=== PATIENT | male | born 1960 | race Caucasian/White ===

== ENCOUNTER 2020-07-23 17:07 | Outpatient (REF) | payer MEDICARE, SELFPAY | END 2020-07-23 17:08 | disposition home or self-care (01) | LOC: HO.LAB 17:07 | PROVIDERS: PCP Internal Medicine Geriatric Medicine; Visit Provider Internal Medicine | DX: Z20.828 Contact with and (suspected) exposure to other viral communicable diseases (principal) | CPT/HCPCS: 87635 ==

== ENCOUNTER 2020-08-26 12:03 | Outpatient (REF) | payer MEDICARE, SELFPAY | END 2020-08-26 12:04 | disposition home or self-care (01) | LOC: HO.EMPCOV 12:03 | PROVIDERS: Visit Provider Internal Medicine | DX: Z20.828 Contact with and (suspected) exposure to other viral communicable diseases (principal) | CPT/HCPCS: C9803; U0003 ==

== ENCOUNTER → 2021-11-26 10:55 | Outpatient (BNVA) | payer MEDICARE, SELFPAY | PROVIDERS: PCP Internal Medicine Geriatric Medicine; Referring Provider Internal Medicine Geriatric Medicine; Visit Provider Physician Assistant | DX: Z12.11 Encounter for screening for malignant neoplasm of colon (principal); K59.09 Other constipation | CPT/HCPCS: 99202 ==

== ENCOUNTER 2022-05-04 08:56 | Day surgery (SDC) | payer OTHER, SELFPAY ==
--- NOTE | 2022-05-04 09:20 | MHC.SHP ---
Pre-Procedural Eval Section A Date of Service: 05/04/22 The patient is an INPATIENT: No The History & Physical has been completed within 30 days and I have reviewed it.: No Section B Chief Complaint: constipation,screening Details of Present Illness: Colon cancer screening, chronic constipation Relevant Family History (Specify if Yes): No Relevant Social History: None Present Medications: see Short Stay Collaborative assessment Medical History: Significant History (Hypothyroidism, GERD, chronic constipation) History of Previous Operations: No relevant previous surgery Allergies: Allergies Allergy/AdvReac Type Severity Reaction Status Date / Time No Known Allergies Allergy Verified 04/28/22 15:05 [No Known Allergies*] Review of Systems Sugical H&P ROS: Negative: Constitution, Cardiovascular and Respiratory and Yes, Specify: Gastrointestinal (constipation) Exam Surgical H&P Exam: Normal: Heart, Normal: Lungs, Normal: Extremities and Normal: Abdomen Plan Diagnosis/Plan: Unchanged I have reviewed the history and physical and performed a pertinent physical examination on my patient. No changes have occurred unless specified.
--- NOTE | 2022-05-04 09:30 | P.CONAN_ITS ---
[facility] Active Problems Active Problems: All Active Problems (Updated 04/28/22 @ 15:04 by Jeanine Arredondo RN) Encounter for screening colonoscopy (Acute) Chronic constipation (Acute) Acid reflux (Acute) Past Medical History Medical History (Updated 04/28/22 @ 15:04 by Jeanine Arredondo RN) Depression Hypothyroid Family History Family History (Updated 11/26/21 @ 11:20 by Olivia Gordon PA-C) Unknown No family history of colorectal cancer Family history of problems with anesthesia: No Surgical History History of Problems with Anesthesia: No Social History Social History Household Members: Spouse and Children Alcohol intake: never Patient Tobacco Use Status: Never used Tobacco Use of substances other than those prescribed or required for medical reasons: No Have you been hit, kicked, punched, or otherwise hurt by someone within the past year? If so, by whom?: No Are you DNR?: No Advance Directives: No Advance Directives Information Provided: Yes Meds Allergies Allergy/AdvReac Type Severity Reaction Status Date / Time No Known Allergies Allergy Verified 04/28/22 15:05 [No Known Allergies*] Home Medications Medication Instructions Recorded Confirmed Last Taken Type bupropion HCl 200 mg tablet,12 hr 200 mg PO DAILY 11/26/21 04/28/22 Unknown History sustained-release levothyroxine 50 mcg capsule 50 mcg PO DAILY 11/26/21 04/28/22 Unknown History trazodone 150 mg tablet 150 mg PO DAILY 11/26/21 04/28/22 Unknown History Exam Exam Date and Time: May 04, 2022 0930 Airway Mallampati Class: II TM Dist: >3cm Neck ROM: Full Heart: rrr Lungs: cta Assessment and Plan Assessment Anesthesia Assessment: Anesthesia Plan Discussed and Chart Reviewed Final Anesthetic Review Family History of Problems with Anesthesia: No History of Problems with Anesthesia: No NPO: Yes ASA Class: II Final Preanesthetic Review: No Changes in Pt Med Stat, Meds/Allgs Chart Reviewed and Consent Obtained/Reviewed Patient Risk: Intermediate Procedure Risk: Intermediate Anesthetic Plan Anesthetic Plan: MAC: Disposition: Standard PACU
[2022-05-04 09:48] VITALS: BP 140/89; PULSE 80; RESP 18; TEMP 36.2; O2SAT 97
[2022-05-04 09:58] VITALS: BMI 25.0
[2022-05-04] MEDS: Lactated Ringers 1,000 ML 50 ML IVCONT (10:21)
--- NOTE | 2022-05-04 10:28 | PM.OP ---
Brief Operative Note Date of Service: 05/04/22 Pre-op diagnosis: Colon cancer screening, chronic constipation Post-op diagnosis: other (Diverticulosis, hemorrhoids) Procedure: COLONOSCOPY TILL CECUM WITH BIOPSIES Consent: Indications for the procedure and potential complications of bleeding, perforation, reaction to medications and missed diagnosis were discussed with the patient and informed consent was obtained. Instrument: Olympus PCF H 190 L variable stiffness pediatric colonoscope Monitoring: Vital signs and clinical assessment, intermittent blood pressure monitoring, continuous EKG monitoring, Pulse oximetry and Carbon Dioxide monitoring were done throughout the procedure. Colon withdrawl time was 18 minutes. Procedure: The patient was placed in the left lateral decubitis position and pre-procedure medications were administered. After a digital rectal examination of the ano-rectum, the video colonoscope was inserted into the rectum and advanced through the colon to the cecum. The colonoscope was slowly withdrawn in a retrograde panoramic fashion and the colon mucosa was carefully examined including a retroflexed view of the rectum. Findings and interventions are described below. Procedure Difficulty: Without difficulty Findings: Terminal Ileum: Not evaluated Cecum: Proximal lip of ICV appeared nodular - biopsied to rule out adenomatous tissue. Ascending Colon: Moderate scattered diverticulosis throughout the colon Transverse Colon: Moderate scattered diverticulosis throughout the colon Descending Colon: Moderate scattered diverticulosis throughout the colon Sigmoid Colon: Moderate diverticulosis Rectum: Normal Ano-rectum: Large non-bleedng internal hemorrhoids Colon preparation: Good Impression and Post Procedure Diagnosis: Colonoscopy Findings: No polyps were detected Proximal lip of ICV appeared nodular - biopsied to rule out adenomatous tissue. Moderate diverticulosis seen in the entire colon Large non-bleeding hemorrhoids on retroflexed exam. Plan: Await pathology results Patient has an appointment on 05/18/22 in the GI [facility] with GALE Noble. Repeat Colonoscopy interval based on path results - in 10 years if ICV biopsies are normal. Above findings were reviewed with the patient and Hemorrhoids and diverticulosis handouts were given in the discharge area Surgeon: Eva Bhatia MD Anesthesia: MAC (Dr Lombardi) Was an Director Inpatient Headache Program used for this Procedure?: Yes Director Inpatient Headache Program: Kenya Foster Estimated blood loss (mL): 0 Pathology: other (A. ICV) Condition: stable Disposition: PACU
[2022-05-04 11:00] VITALS: BP 108/68; PULSE 71; RESP 16; TEMP 36.2; O2SAT 95
[2022-05-04 11:15] VITALS: BP 120/81; PULSE 72; RESP 19; O2SAT 98
[2022-05-04 11:30] VITALS: BP 113/83; PULSE 65; RESP 20; TEMP 36.4; O2SAT 96
--- NOTE | 2022-05-04 18:05 | W.PM.OPN ---
Operative Note Operative Note Date of Service: 05/04/22 Narrative: Pre-op diagnosis: Colon cancer screening, chronic constipation Post-op diagnosis:?other (Diverticulosis, hemorrhoids) Procedure: COLONOSCOPY TILL CECUM WITH BIOPSIES Consent: Indications for the procedure and potential complications of bleeding, perforation, reaction to medications and missed diagnosis were discussed with the patient and informed consent was obtained. Instrument: Olympus PCF H 190 L variable stiffness pediatric colonoscope Monitoring: Vital signs and clinical assessment, intermittent blood pressure monitoring, continuous EKG monitoring, Pulse oximetry and Carbon Dioxide monitoring were done throughout the procedure. Colon withdrawl time was 18 minutes. Procedure: The patient was placed in the left lateral decubitis position and pre-procedure medications were administered. After a digital rectal examination of the ano-rectum, the video colonoscope was inserted into the rectum and advanced through the colon to the cecum. The colonoscope was slowly withdrawn in a retrograde panoramic fashion and the colon mucosa was carefully examined including a retroflexed view of the rectum. Findings and interventions are described below. Procedure Difficulty: Without difficulty Findings: Terminal Ileum: Not evaluated Cecum:? Proximal lip of ICV appeared nodular - biopsied to rule out adenomatous tissue. Ascending Colon:? Moderate scattered diverticulosis throughout the colon Transverse Colon:? Moderate scattered diverticulosis throughout the colon Descending Colon:? Moderate scattered diverticulosis throughout the colon Sigmoid Colon:? Moderate diverticulosis Rectum:? Normal Ano-rectum:? Large non-bleedng internal hemorrhoids Colon preparation:? Good? Impression and Post Procedure Diagnosis: Colonoscopy Findings: No polyps were detected Proximal lip of ICV appeared nodular - biopsied to rule out adenomatous tissue. Moderate diverticulosis seen in the entire colon Large non-bleeding hemorrhoids on retroflexed exam. Plan: Await pathology results Patient has an appointment on 05/18/22 in the GI Clinic with GALE Noble. Repeat Colonoscopy interval based on path results - in 10 years if ICV biopsies are normal. Above findings were reviewed with the patient and Hemorrhoids and diverticulosis handouts were given in the discharge area Surgeon: Eva Bhatia MD Anesthesia:?MAC (Dr Lombardi) Was an Counter Intelligence used for this Procedure?:?Yes Counter Intelligence:?Kenya Foster Estimated blood loss (mL):?0 Pathology:?other (A.? ICV) Condition:?stable Disposition:?PACU
== END 2022-05-04 12:23 | disposition home or self-care (01) ==
PROVIDERS: PCP Internal Medicine Geriatric Medicine; Visit Provider Internal Medicine Gastroenterology
PROC: 0DJD8ZZ Inspection of Lower Intestinal Tract, Via Natural or Artificial Opening Endoscopic (ICD-10-PCS; CPT 45378; principal; 2022-05-04 10:20)
DX: Z12.11 Encounter for screening for malignant neoplasm of colon (principal); K59.09 Other constipation; K57.30 Diverticulosis of large intestine without perforation or abscess without bleeding; K64.8 Other hemorrhoids; K21.9 Gastro-esophageal reflux disease without esophagitis
CPT/HCPCS: 45380; 88305

== ENCOUNTER → 2022-05-18 08:14 | Outpatient (BNVA) | payer OTHER, SELFPAY | PROVIDERS: PCP Internal Medicine Geriatric Medicine; Visit Provider Physician Assistant | DX: K57.30 Diverticulosis of large intestine without perforation or abscess without bleeding (principal); K64.9 Unspecified hemorrhoids; K63.5 Polyp of colon | CPT/HCPCS: 99212 ==

== ENCOUNTER 2024-01-13 08:54 | Outpatient (REF) | payer OTHER, SELFPAY ==
[2024-01-13 11:21] LABS: MANUAL DIFF FLAG NO
[2024-01-13 11:36] LABS: Basophils Percent Auto 0.6 % (0-2); Eosinophils Absolute Auto 0.3 X10*3/uL (0.0-0.4); Eosinophils Percent Auto 4.3 % (0-4); Hemoglobin 14.7 g/dl (14.0-18.0); Imm Gran Abs Auto 0.02 X10*3/uL (0.00-0.03); Imm Gran Pct Auto 0.3 % (0.0-0.4); Lymphocytes Absolute Auto 2.7 X10*3/uL (1.2-4.9); Lymphocytes Percent Auto 38.3 % (20-40); Mean Corpuscular HGB Conc 32.7 g/dl (31.0-36.0); Mean Corpuscular Volume 76.4 fL (80.0-98.0); Monocytes Absolute Auto 0.6 X10*3/uL (0.1-1.2); Monocytes Percent Auto 8.7 % (2-11); Neutrophils Absolute Auto 3.4 x10*3/uL (2.0-8.3); Neutrophils Percent Auto 47.8 % (45-73); Platelet Count 202 X10*3/uL (160-400); Red Blood Count 5.89 X10*6/uL (4.60-5.80); Red Cell Distribution Width 14.5 % (11.0-16.0); White Blood Count 7.2 X10*3/uL (4.8-10.8)
[2024-01-13 12:02] LABS: Alanine Aminotransferase 20 U/L (0-40); Albumin Level 4.2 g/dL (3.5-5.0); Alkaline Phosphatase 73 U/L (39-117); Anion Gap 13 (12-20); Aspartate Amino Transferase 23 U/L (5-37); Bilirubin Total 0.6 mg/dL (0.0-1.0); Blood Urea Nitrogen 17 mg/dL (9-16); Calcium 9.5 mg/dL (8.4-10.2); Carbon Dioxide 25 mmol/L (22-29); Chloride 108 mmol/L (96-108); Cholesterol 167 mg/dL (<200); Estimated Glomerular Filt Rate > 60; Glucose Random 106 mg/dL (60-115); HDL Cholesterol 36 mg/dL (>40); LDL Cholesterol Calculated 88 mg/dL (<100); Potassium 4.2 mmol/L (3.3-5.1); Sodium 142 mmol/L (135-145); Total Protein 7.7 g/dL (6.5-8.0); Triglycerides 219 mg/dL (<150)
[2024-01-13 12:06] LABS: ~HepC Num1 0.06 S/CO (0.00-0.79); ~Hepatitis C Antibody Nonreactive (Nonreactive)
[2024-01-13 12:48] LABS: Free T4 (Free Thyroxine) 0.97 ng/dL (0.71-1.85)
== END 2024-01-13 08:55 | disposition home or self-care (01) ==
LOC: HO.HHCL 08:54
PROVIDERS: Visit Provider Internal Medicine Geriatric Medicine
DX: Z13.220 Encounter for screening for lipoid disorders (principal); Z13.1 Encounter for screening for diabetes mellitus; Z11.59 Encounter for screening for other viral diseases; E03.9 Hypothyroidism, unspecified; F33.41 Major depressive disorder, recurrent, in partial remission
CPT/HCPCS: 36415; 80053; 80061; 84439; 84443; 85025; 86803

== ENCOUNTER 2024-08-10 10:26 | Outpatient (REF) | payer OTHER, SELFPAY ==
[2024-08-10 13:08] LABS: Free T4 (Free Thyroxine) 0.93 ng/dL (0.71-1.85)
== END 2024-08-10 10:27 | disposition home or self-care (01) ==
LOC: HO.HHCL 10:26
PROVIDERS: Visit Provider Internal Medicine Geriatric Medicine
DX: E03.9 Hypothyroidism, unspecified (principal)
CPT/HCPCS: 36415; 84439; 84443